=== PATIENT | female | born 1975 | race Hispanic/Latino ===

== ENCOUNTER → 2018-07-16 08:04 | Outpatient (CLI) | payer OTHER, SELFPAY ==
--- NOTE | 2018-07-16 | DI.MG.S_ITS ---
BILATERAL DIGITAL SCREENING MAMMOGRAM 3D/2D WITH CAD: 07/16/2018 CLINICAL: Routine screening. Comparison is made to exam dated: 08/17/2013 [facility]. The tissue of both breasts is heterogeneously dense. This may lower the sensitivity of mammography. Current study was also evaluated with a Computer Aided Detection (CAD) system. No significant masses, calcifications, or other findings are seen in either breast. There has been no significant interval change. IMPRESSION: NEGATIVE There is no mammographic evidence of malignancy. A 1 year screening mammogram is recommended. This exam was interpreted at Station ID: [id number]. NOTE: For mammograms, a report in lay terms will be sent to the patient. Approximately 15% of breast malignancies will not be visualized mammographically. In the management of a palpable breast mass, a negative mammogram must not discourage biopsy of a clinically suspicious lesion. Electronically Signed By: Kishore coates/sheree:07/16/2018 17:53:37 letter sent: Normal Exam ACR BI-RADS Category 1: Negative [id number]
== END ==
PROVIDERS: Visit Provider Family Medicine
DX: Z12.31 Encounter for screening mammogram for malignant neoplasm of breast (principal)
CPT/HCPCS: 77063; 77067

== ENCOUNTER → 2018-12-17 10:17 | Outpatient (CLI) | payer OTHER, SELFPAY ==
--- NOTE | 2018-12-17 | DI.RAD.S_ITS ---
PROCEDURE: XR LUMBAR SPINE 2-3V INDICATIONS: LATERAL LOWER LEG PAIN,LEFT,RADICULAR ETILOLOGY TECHNIQUE: 3 views of the lumbar spine were acquired. COMPARISON: None. FINDINGS: Bones: 5 [id number] vertebrae are present. There is normal bony alignment. No vertebral body compression fractures. No suspicious bony lesions. The disc spaces are well-preserved. Soft tissues: Overlying bowel gas pattern is normal. No suspicious soft tissue calcifications. An IUD is seen at its expected location. IMPRESSION: Normal lumbar spine plain films. If it would be helpful for clinical management decision making, please consider a dedicated lumbar MRI for further evaluation (assuming that there is no contraindication). IUD noted. Dictated by: Davie Singh M.D. on 12/17/2018 at 9:56 Approved by: Davie Singh M.D. on 12/17/2018 at 9:57
== END ==
PROVIDERS: PCP Nurse Practitioner Family; Visit Provider Nurse Practitioner Family
DX: M79.605 Pain in left leg (principal); M54.16 Radiculopathy, lumbar region
CPT/HCPCS: 72100

== ENCOUNTER → 2018-12-31 13:33 | Outpatient (CLI) | payer OTHER, SELFPAY ==
--- NOTE | 2018-12-31 | DI.MRI.S_ITS ---
PROCEDURE: MR LUMBAR SPINE WO CON INDICATIONS: LUMBAR RADICULOPATHY TECHNIQUE: Noncontrast sagittal T1 spin echo and T2 fast echo, sagittal STIR, axial T1 and T2 fast spin echo through the lumbar spine. In cases with scoliosis, additional coronal T2 fast spin echo may be performed. COMPARISON: [facility], CR, XR LUMBAR SPINE 2-3V, 12/17/2018, 10:27. FINDINGS: Image quality: Diagnostic Alignment and Curvature: There is normal bony alignment. Bone Marrow: Marrow is of normal overall signal. No acute vertebral body compression fractures. Spinal Cord: Conus medullaris terminates at the L1-L2 level. Visualized cord demonstrates normal signal and size. Paraspinous Soft Tissues: No paravertebral masses. T12-L1: Normal appearance. L1-L2: Normal appearance. L2-L3: Normal appearance. L3-L4: Normal appearance. L4-L5: The disc height and disk signal are well-preserved. Mild generalized disc bulge is seen. There is minimal to mild right-sided and no left-sided neural foraminal narrowing seen. Minimal central canal narrowing is seen. L5-S1: The disc height is well-preserved. Loss of disc signal is seen at this level. Moderate disc bulge is seen, with a central/right disc protrusion, which continues into the right neural foramen. Mild facet joint hypertrophy is seen. There is mild to moderate bilateral neural foraminal narrowing seen. Mild to moderate central canal narrowing is seen, as on series 5 image 28. IMPRESSION: Lower lumbar spine degenerative changes are seen. Dictated by: Davie Singh M.D. on 12/31/2018 at 13:56 Approved by: Davie Singh M.D. on 12/31/2018 at 13:59
== END ==
PROVIDERS: Family Provider Family Medicine; PCP Nurse Practitioner Family; Visit Provider Nurse Practitioner Family
DX: M47.26 Other spondylosis with radiculopathy, lumbar region (principal)
CPT/HCPCS: 72148

== ENCOUNTER → 2020-09-21 07:51 | Outpatient (CLI) | payer OTHER, SELFPAY ==
[2020-09-21 08:40] LABS: Appearance Urine UA CLOUDY; Bilirubin Urine UA NEGATIVE (NEGATIVE); Color Urine UA YELLOW; Glucose Urine UA NEGATIVE (Negative); Ketones Urine UA NEGATIVE (NEGATIVE); Leukocyte Esterase Urine UA NEGATIVE (NEGATIVE); Nitrite Urine UA NEGATIVE (Negative); Occult Blood Urine UA 3+ (Negative); Protein Urine UA TRACE (Negative); Specific Gravity Urine UA 1.015 (1.000-1.035); Urobilinogen Urine UA 0.2 E.U./dL (0.2)
[2020-09-21 08:44] LABS: Add Manual Diff / Slide Review NO; Basophils Absolute Auto 0 /uL (0-100); Basophils Percent Auto 0.6 % (0-2); Eosinophils Absolute Auto 100 /uL (0-450); Eosinophils Percent Auto 2.2 % (2-4); Hematocrit 40.1 % (36-46); Hemoglobin 12.9 g/dL (12.0-16.0); Lymphocytes Absolute Auto 1500 /uL (1100-4500); Lymphocytes Percent Auto 27.2 % (25-40); Mean Corpuscular HGB Conc 32.2 % (30-36); Mean Corpuscular Hemoglobin 27.2 PG (26-34); Mean Corpuscular Volume 84.6 fL (80-100); Monocytes Absolute Auto 400 /uL (0-900); Monocytes Percent Auto 6.7 % (3-14); Neutrophils Absolute Auto 3500 /uL (1500-7000); Neutrophils Percent Auto 63.3 % (50-75); Platelet Count 190 X10^3/uL (150-400); Red Blood Cell Count 4.74 X10^6/uL (4.0-5.2); White Blood Cell Count 5.5 X10^3/uL (4.5-11.0)
[2020-09-21 08:47] LABS: pH Urine UA 8.5 (4.5-8.0)
[2020-09-21 08:48] LABS: Bacteria Urine None Seen
[2020-09-21 08:57] LABS: Culture Indicated Urine Specimen Cultured
[2020-09-21 09:01] LABS: WBC Urine 5-10/HPF (0-5/HPF)
[2020-09-21 09:02] LABS: RBC Urine 10-30/HPF (0-5/HPF)
[2020-09-21 09:06] LABS: Alanine Aminotransferase 28 IU/L (<35); Albumin Globulin Ratio 1.3 (1.0-2.8); Alkaline Phosphatase 76 U/L (38-126); Aspartate Aminotransferase 26 IU/L (14-36); BUN Creatinine Ratio 19.4 (6-22); Bilirubin Total 0.4 mg/dL (0.2-1.3); Blood Urea Nitrogen 12 mg/dL (7-17); Calcium 9.1 mg/dL (8.4-10.2); Carbon Dioxide 31 mmol/L (22-32); Chloride 105 mmol/L (98-107); Cholesterol 193 mg/dL (140-199); Estimated Glomerular Filt Rate > 60.0 mL/min (>60); Glucose 101 mg/dL (70-100); HDL Cholesterol 67 mg/dL (40-60); HEMOLYSIS < 15 (0-50); LDL Cholesterol Calculated 76 mg/dL (<100); Potassium 5.1 mmol/L (3.4-5.1); Sodium 137 mmol/L (137-145); Triglycerides 252 mg/dL (35-150)
[2020-09-21 09:35] LABS: TSH w/ Reflex to FT4 2.25 uIU/mL (0.47-4.68)
== END ==
PROVIDERS: Family Provider Family Medicine; PCP Registered Nurse; Referring Provider Registered Nurse; Visit Provider Registered Nurse
DX: R53.83 Other fatigue (principal); E78.5 Hyperlipidemia, unspecified
CPT/HCPCS: 36415; 80053; 80061; 81003; 81015; 84443; 85025; 87086

== ENCOUNTER → 2020-09-25 07:14 | Outpatient (CLI) | payer OTHER, SELFPAY ==
[2020-09-25 08:59] LABS: Cholesterol 191 mg/dL (140-199); HDL Cholesterol 71 mg/dL (40-60); LDL Cholesterol Calculated 86 mg/dL (<100); Triglycerides 172 mg/dL (35-150)
== END ==
PROVIDERS: Family Provider Family Medicine; PCP Registered Nurse; Referring Provider Registered Nurse; Visit Provider Registered Nurse
DX: E78.1 Pure hyperglyceridemia (principal)
CPT/HCPCS: 36415; 80061

== ENCOUNTER → 2021-01-29 15:36 | Outpatient (CLI) | payer OTHER, SELFPAY | PROVIDERS: Family Provider Family Medicine; PCP Registered Nurse; Visit Provider Registered Nurse | DX: N39.0 Urinary tract infection, site not specified (principal) | CPT/HCPCS: 87086 ==

== ENCOUNTER → 2021-02-11 09:18 | Outpatient (CLI) | payer OTHER, SELFPAY ==
--- NOTE | 2021-02-11 09:19 | DI.US.S_ITS ---
LIMITED ULTRASOUND OF RIGHT BREAST: 02/11/2021 CLINICAL: Focal right breast pain. Comparison is made to exams dated: 02/11/2021 mammogram, 07/16/2018 mammogram, 08/17/2013 mammogram, and 08/17/[address] [facility]. Ultrasound of the right breast 7-9 o'clock region was performed. Doyle scale images of the real-time examination were reviewed. No significant abnormalities were seen sonographically in the right breast. Specifically, no finding to explain the patient's pain. IMPRESSION: NEGATIVE There is no sonographic evidence of malignancy. There is no abnormality seen in the right breast to correspond with the pain in the lower outer quadrant. Return to annual mammogram screening schedule is recommended. Findings and recommendations were conveyed to the patient at time of exam. This exam was interpreted at Station ID: [id number]. Electronically Signed By: Janna juarez/:02/11/2021 10:33:40 letter sent: Normal Exam Ultrasound BI-RADS: 1 Negative
--- NOTE | 2021-02-11 09:19 | DI.MG.S_ITS ---
BILATERAL DIGITAL DIAGNOSTIC MAMMOGRAM 3D/2D: 02/11/2021 CLINICAL: Right breast pain. Comparison is made to exams dated: 07/16/2018 mammogram, 08/17/2013 mammogram, and 08/17/2013 [facility]. There are scattered fibroglandular elements in both breasts. No significant masses, calcifications, or other findings are seen in either breast. Specifically, no finding to explain the patient's pain. IMPRESSION: INCOMPLETE: NEEDS ADDITIONAL IMAGING EVALUATION There is no abnormality seen in the right breast to correspond with the pain at 9 o'clock in the anterior depth. Ultrasound is recommended for full evaluation of this area. This was performed immediately following this exam. This exam was interpreted at Station ID: [id number]. NOTE: For mammograms, a report in lay terms will be sent to the patient. Approximately 15% of breast malignancies will not be visualized mammographically. In the management of a palpable breast mass, a negative mammogram must not discourage biopsy of a clinically suspicious lesion. Electronically Signed By: Janna juarez/:02/11/2021 10:14:51 ACR BI-RADS Category 0: Incomplete [id number]
== END ==
PROVIDERS: Family Provider Family Medicine; PCP Registered Nurse; Referring Provider Registered Nurse; Visit Provider Registered Nurse
DX: R92.8 Other abnormal and inconclusive findings on diagnostic imaging of breast (principal); N64.4 Mastodynia
CPT/HCPCS: 76642; 77066; G0279

== ENCOUNTER → 2021-03-23 08:05 | Outpatient (CLI) | payer OTHER, SELFPAY ==
[2021-03-23 10:13] LABS: Cholesterol 179 mg/dL (140-199); HDL Cholesterol 71 mg/dL (40-60); LDL Cholesterol Calculated 83 mg/dL (<100); Triglycerides 123 mg/dL (35-150)
== END ==
PROVIDERS: Family Provider Family Medicine; PCP Registered Nurse; Referring Provider Registered Nurse; Visit Provider Registered Nurse
DX: E78.5 Hyperlipidemia, unspecified (principal)
CPT/HCPCS: 36415; 80061

== ENCOUNTER 2021-07-10 22:06 | Emergency (ER) | payer OTHER, SELFPAY ==
[2021-07-10 22:20] VITALS: BP 130/76; PULSE 61; RESP 17; TEMP 36.2; O2SAT 99; BMI 35.9
--- NOTE | 2021-07-10 22:42 | ED.HA ---
HPI - Headache General Chief Complaint: Headache Stated Complaint: headache, feels like loosing voice Time Seen by Provider: 07/10/21 22:15 History of Present Illness HPI Narrative: 45F nonsmoker without chronic medical history presents with her and the chief complaint of a gradually worsening frontal headache over the course of the day. She does not typically get headaches. She denies any recent injury, fever or chills nor neck pain. She states her headache is about a 6/10 and denies any obvious provocation, palliation or radiation. She denies any improvement with [id number] medications. She has had no trauma. She denies any new medications or dietary change. She denies any neurologic symptoms such as blurred vision, trouble with speech or numbness, tingling or weakness Related Data Home Medications Medication Instructions Recorded Confirmed duloxetine 30 mg capsule,delayed 30 mg PO BID 08/26/19 01/29/21 release magnesium oxide mg PO .HS each 09/20/20 01/29/21 Allergies Allergy/AdvReac Type Severity Reaction Status Date / Time nitrofurantoin Allergy Rash Verified 02/07/21 16:29 Review of Systems Review of Systems Narrative: GENERAL: Denies chills, fatigue, malaise, fever, sweats. HEENT: Denies sinus pain, ear pain, sore throat, difficulty swallowing, dizziness. RESPIRATORY: Denies dyspnea, cough, wheezing, hemoptysis, sputum. CARDIOVASCULAR: Denies chest pain, palpitations, orthopnea, edema, GASTROINTESTINAL: Denies nausea, vomiting, abdominal pain, diarrhea, constipation, melena. : Denies dysuria, frequency, incontinence, hematuria, urinary retention. MUSCULOSKELETAL: denies weakness, joint pain, or bony pain SKIN: Denies rash, skin lesions, or other NEUROLOGIC: D see HPI PSYCHIATRIC: No concerning psychosocial issues. 12 point review of systems is negative except for those stated above Patient History Family History Father Hypertension Hyperlipidemia Mother Hypertension Hyperlipidemia Osteoporosis Grandmother Cancer Grandmother Hypertension Social History Smoking Status: Never smoker second hand exposure: No alcohol intake: current (rare) substance use type: does not use Smoking Status: Never smoker Exam Narrative Exam Narrative: GENERAL: [45] year old patient appears stated age. Well-developed patient, in mild distress. HEAD: Atraumatic. Normocephalic. EYES: Pupils equal round and reactive. Extraocular motions intact. No scleral icterus. No injection or drainage. ENT: Nose without bleeding, purulent drainage. Throat without erythema, tonsillar hypertrophy or exudate. Airway patent. NECK: Trachea midline. Non tender CARDIOVASCULAR: Regular rate and rhythm without murmurs, gallops, or rubs. RESPIRATORY: Clear to auscultation. Breath sounds equal bilaterally. No wheezes, rales, or rhonchi. GASTROINTESTINAL: Abdomen soft, non-tender, nondistended. EXTREMITIES: No edema or joint tenderness. BACK: Nontender without deformity or crepitance. No flank tenderness. NEURO: AOx3. SKIN: No rash or erythema of visible areas NIH Stroke Scale 1a. LOC: Patient is alert and keenly responsive (0) 1b. LOC Questions: Patient answers both LOC questions accurately (0) 1c. LOC Commands: Patient performs both tasks correctly (0) 2. Best Gaze: Normal (0) 3. Visual: No visual loss (0) 4. Facial palsy: Normal symmetrical movements (0) 5. Motor arm: No drift (0) 6. Motor leg: No drift (0) 7. Limb ataxia: Absent (0) 8. Sensory: Normal (0) 9. Best language: No aphasia; normal (0) 10. Dysarthria: Normal (0) 11. Extinction and inattention: No abnormality (0) NIHSS: 0 Initial Vital Signs Initial Vital Signs: Vital Signs Temperature 97.1 F L 07/10/21 22:20 Pulse Rate 61 07/10/21 22:20 Respiratory Rate 17 07/10/21 22:20 Blood Pressure 130/76 07/10/21 22:20 Pulse Oximetry 99 07/10/21 22:20 Course Orders Ordered: Discontinued Medications Dexamethasone (Dexamethasone 10 Mg/Ml Vial) 10 mg IV NOW ONE Stop: 07/10/21 23:00 Last Admin: 07/10/21 23:06 Dose: 10 mg Documented by: YEFRI Diphenhydramine HCl (Diphenhydramine 50 Mg/Ml Vial) 25 mg IV NOW ONE Stop: 07/10/21 23:00 Last Admin: 07/10/21 23:06 Dose: 25 mg Documented by: YEFRI Sodium Chloride (Normal Saline 0.9%) 1,000 mls @ 1,000 mls/hr IV BOLUS ONE Stop: 07/10/21 23:58 Last Infusion: 07/11/21 00:17 Dose: 0 mls/hr Documented by: Admin: 07/10/21 23:05 Dose: 1,000 mls/hr Documented by: YEFRI Metoclopramide HCl (Metoclopramide 10 Mg/2 Ml Inj) 10 mg IV NOW ONE Stop: 07/10/21 23:00 Last Admin: 07/10/21 23:06 Dose: 10 mg Documented by: YEFRI Reevaluation(s) Reevaluation #1: Patient feels tremendous improvement after above-stated therapies Vital Signs Vital signs: Vital Signs - 8 hr 07/10/21 22:20 07/10/21 22:55 07/10/21 23:00 Temperature 97.1 F L Pulse Rate 61 60 58 L Respiratory Rate 17 Blood Pressure 130/76 122/75 Pulse Oximetry 99 98 99 07/10/21 23:30 07/11/21 00:00 07/11/21 00:13 Temperature Pulse Rate 62 62 71 Respiratory Rate Blood Pressure 112/68 Pulse Oximetry 98 99 98 07/11/21 00:25 Temperature Pulse Rate 62 Respiratory Rate 15 Blood Pressure 112/68 Pulse Oximetry 98 MDM - Headache Lab Data Labs: Point of Care Testing Glucose POC 93 MDM Narrative Medical decision making narrative: Headache considerations include, but not limited to: Subarachnoid hemorrhage, but unlikely as patient denies sudden onset of pain, not worst of life, or neck pain Meningitis considered, but thought unlikely given lack of Brudzinski's, Kernig's sign, altered mental status or fever Giant cell arteritis considered, but thought unlikely given lack of unilateral findings, pain in congregational, vision change HTN Emergency considered, but thought unlikely given normal vitals Other serious diagnoses considered unlikely given lack of red flag findings such as sudden onset, increasing frequency, immunocompromise, systemic signs (fever, chills, stiff neck, or rash), focal neurologic findings, trauma, blood thinners, etc. Discharge Plan Departure Patient Disposition: Home Clinical Impression: Headache Qualifiers: Headache type: unspecified Headache chronicity pattern: acute headache Intractability: not intractable Qualified Code(s): R51.9 - Headache, unspecified Instructions: DI for Headache Activity Restrictions/Additional Instructions: *You have been diagnosed with [ Headache ] *What to do: * please continue to take medications as directed *Follow up with your primary care provider in 2-3 days, call for an appointment. Let them know you were seen in the Emergency Department and that we ask that you be seen in follow up *Return to ER if you should have any new, worsening or concerning symptoms, such as [ fever > 101F, neck pain or stiffness, vomiting, confusion, seizure, focal weakness, vision change, speech deficit or other concerning symptoms ] Prescriptions: No Action duloxetine 30 mg capsule,delayed release(DR/EC) 30 mg PO BID RF: 0 magnesium oxide 240 mg magnesium powder in packet PO .HS RF: 0 Referrals: Justo Roman ARNP [Primary Care Provider] -
[2021-07-10 22:55] VITALS: PULSE 60; O2SAT 98
[2021-07-10 23:00] VITALS: BP 122/75; PULSE 58; O2SAT 99
[2021-07-10] MEDS: SODIUM CHLORIDE 0.9% 1,000 ML 1000 ML IV (23:05)
[2021-07-10] MEDS: diphenhydrAMINE 50 MG/ML VIAL 25 MG IV (23:06)
[2021-07-10] MEDS: DEXAMETHASONE 10 MG/ML VIAL IV (23:06)
[2021-07-10] MEDS: METOCLOPRAMIDE 10 MG/2 ML INJ IV (23:06)
[2021-07-10 23:30] VITALS: PULSE 62; O2SAT 98
[2021-07-11] VITALS: PULSE 62; O2SAT 99
[2021-07-11 00:13] VITALS: BP 112/68; PULSE 71; O2SAT 98
[2021-07-11 00:25] VITALS: BP 112/68; PULSE 62; RESP 15; O2SAT 98
== END 2021-07-11 00:26 | disposition home or self-care (01) ==
PROVIDERS: Emergency Provider Emergency Medicine; Family Provider Family Medicine; PCP Registered Nurse
DX: R51.9 Headache, unspecified (principal)
CPT/HCPCS: 36415; 82962; 96361; 96374; 96375; 99284; J1100; J1200; J2765